=== PATIENT | female | born 1990 | race Caucasian/White ===

== ENCOUNTER 2020-06-24 11:01 | Day surgery (SDC) | payer OTHER ==
[2020-06-18 18:13] VITALS: BMI 24.1
[2020-06-24] MEDS ORDERED: PROPOFOL 20 ML ONE ×2 (11:22)
[2020-06-24 11:35] VITALS: TEMP 98.2
[2020-06-24 13:16] VITALS: BP 100/60; PULSE 61
== END 2020-06-24 13:30 | disposition home or self-care (01) ==
LOC: FASU-ENDO 11:01
PROVIDERS: ATTEND Internal Medicine Gastroenterology
PROC: 0DJD8ZZ Inspection of Lower Intestinal Tract, Via Natural or Artificial Opening Endoscopic (ICD-10-PCS; principal; 2020-06-24 12:03)
DX: Z12.11 Encounter for screening for malignant neoplasm of colon (principal); K64.0 First degree hemorrhoids; K64.4 Residual hemorrhoidal skin tags
CPT/HCPCS: 84703